=== PATIENT | male | born 1955 | race Caucasian/White ===

== ENCOUNTER 2019-01-24 06:58 | Outpatient (CLI) | payer MEDICARE, OTHER ==
[~2019-01-24] VITALS: Ht 182.9 cm; Wt 150.1 kg
[2019-01-24] MEDS ORDERED: BUSPAR DIVIDOSE15 MG PO (08:23)
[2019-01-24] MEDS ORDERED: EPA FISH OIL1 SGL PO (08:24)
[2019-01-24] MEDS ORDERED: MOTRIN 800800 MG/TAB PO (08:25)
[2019-01-24] MEDS ORDERED: ATARAX 25MG25 MG/TAB PO (08:25)
[2019-01-24] MEDS ORDERED: ZESTRIL40 MG PO (08:26)
[2019-01-24] MEDS ORDERED: MULTI VITAMINS1 TAB PO (08:27)
[2019-01-24] MEDS ORDERED: PRILOSEC 20MG20 MG PO (08:27)
[2019-01-24] MEDS ORDERED: ADALAT CC90 MG PO (08:27)
[2019-01-24] MEDS ORDERED: MINIPRESS 5M5 MG/CAP PO (08:28)
[2019-01-24] MEDS ORDERED: VIAGRA100 M1 PO (08:28)
[2019-01-24] MEDS ORDERED: TOPAMAX200 MG PO (08:29)
[2019-01-24] MEDS ORDERED: FLUORIDEX112 GM DT (08:29)
[2019-01-24] MEDS ORDERED: EFFEXOR-XR150 MG PO (08:30)
[2019-01-24 08:34] VITALS: BP 166/114; PULSE 79; TEMP 98.2
[2019-01-24 10:19] VITALS: BP 161/99; PULSE 95
--- NOTE | 2019-01-24 10:38 | NUR ---
Discharge instructions given to pt.Pt verbalizes understanding.Pt escorted out by this nurse.
== END 2019-01-24 10:38 | disposition home or self-care (01) ==
LOC: COL.CAR 06:58
DX: R94.39 Abnormal result of other cardiovascular function study (principal); I45.2 Bifascicular block; I10 Essential (primary) hypertension; E78.5 Hyperlipidemia, unspecified; Z88.8 Allergy status to other drugs, medicaments and biological substances